=== PATIENT | female | born 2000 | race Caucasian/White ===

== ENCOUNTER 2022-03-24 10:49 | Observation (INO) | payer OTHER ==
[2022-03-22 11:35] LABS: BASOPHILS # (AUTO) 0.1 (0.0-0.1); BASOPHILS % 0.7 % (0.0-1.0); EOSINOPHILS # (AUTO) 0.2 (0.0-0.4); EOSINOPHILS % 3.1 % (0.0-6.0); HEMATOCRIT 41.3 % (34.2-44.1); HEMOGLOBIN 12.7 g/dL (12.0-16.0); LYMPHOCYTES # (AUTO) 1.8 (1.0-3.2); LYMPHOCYTES % 24.2 % (18.0-39.1); MEAN CORPUSCULAR HEMOGLOBIN 25.3 pg (28-32); MEAN CORPUSCULAR HGB CONC 30.8 g/dL (31-35); MEAN CORPUSCULAR VOLUME 82.3 fL (81-99); MONOCYTES # (AUTO) 0.6 (0.2-0.8); MONOCYTES % 7.5 % (4.4-11.3); NEUTROPHILS # (AUTO) 4.7 (2.1-6.9); NEUTROPHILS % 64.4 % (38.7-80.0); PLATELET COUNT 366 x10e3/uL (140-360); RED BLOOD COUNT 5.02 x10e6/uL (3.6-5.1); RED CELL DISTRIBUTION WIDTH 14.8 % (11.7-14.4)
[2022-03-22 11:55] LABS: ALBUMIN 3.7 g/dL (3.5-5.0); ALBUMIN/GLOBULIN RATIO 0.9 (0.8-2.0); ANION GAP 12.9 mmol/L (8-16); CALCIUM 9.1 mg/dL (8.4-10.2); CREATININE, SERUM 0.65 mg/dL (0.57-1.11); POTASSIUM 3.9 mmol/L (3.5-5.1)
[~2022-03-24] VITALS: Ht 160 cm; Wt 69.9 kg
[~2022-03-24 10:49] MED LIST: CEPHALEXIN500 MG PO; KEPPRA1000 M1 PO; KLONOPIN2 MG PO; LEXAPRO20 MG PO; VITAMIN D
[2022-03-24] MEDS ORDERED: DEXAMETHASONE SOD PHOS INJ 4 MG/ML SDV ONE (12:00)
[2022-03-24] MEDS ORDERED: POVIDONE IODINE 0.05% 0.05 % ML PO ONE (12:00)
[2022-03-24] MEDS ORDERED: ACETAMINOPHEN 1000 MG/100 ML IV ONE (12:00)
[2022-03-24] MEDS ORDERED: PROPOFOL IV EMULSION 10 MG/ML 20 ML VIAL ONE (12:00)
[2022-03-24] MEDS ORDERED: KETOROLAC TROMETHAMINE 30 MG/ML VIAL ONE (12:00)
[2022-03-24] MEDS ORDERED: ONDANSETRON HCL INJ 2MG/ML 2ML 2 MG/ML VIAL ONE (12:00)
[2022-03-24] MEDS ORDERED: SUCCINYLCHOLINE CHLORIDE 20 MG/ML 10ML VIAL ONE (12:00)
[2022-03-24] MEDS ORDERED: ROCURONIUM BROMIDE 10 MG/ML 5ML VIAL IV ONE (12:00)
[2022-03-24] MEDS ORDERED: LIDOCAINE HCL 2% LOCAL INJ 5 ML SDV VIAL INJ ONE (12:00)
[2022-03-24] MEDS ORDERED: SEVOFLURANE INHAL SOLN 250 ML PEN BTL ONE (12:00)
[2022-03-24] MEDS ORDERED: BUPIVACAINE 0.25% 30ML SDV ONE (12:19)
[2022-03-24] MEDS ORDERED: FENTANYL CITRATE/PF 100MCG/2 ML INJ ONE (15:20)
[2022-03-24] MEDS ORDERED: MIDAZOLAM HCL 2 MG/2 ML VIAL ONE (15:20)
[2022-03-24 16:40] VITALS: BP 116/73
[2022-03-24] MEDS ORDERED: ONDANSETRON HCL INJ 2MG/ML 2ML 2 MG/ML VIAL IV PRN (16:45)
[2022-03-24] MEDS: LACTATED RINGER'S 1,000 ML INJ SCH (17:25)
[2022-03-24] MEDS: Morphine 4mg INJECTION 4 MG/ML INJ IV PRN (18:31)
[2022-03-24 20:00] VITALS: BP 110/61
[2022-03-24 20:44] VITALS: BP 110/61
[2022-03-25] VITALS (8 sets, daily range): BP systolic 90–113; BP diastolic 59–83
[2022-03-25] MEDS: LACTATED RINGER'S 1,000 ML INJ SCH ×3 (03:29→23:41)
[2022-03-25] MEDS: Morphine 4mg INJECTION 4 MG/ML INJ IV PRN ×2 (03:29→10:57)
[2022-03-25] MEDS: LEVETIRACETAM 500 MG TAB PO SCH ×2 (09:00→17:23)
[2022-03-25] MEDS: ESCITALOPRAM OXALATE 10 MG TAB PO SCH (09:14)
[2022-03-25] MEDS: HYDROCODONE/APAP 5MG-325MG TAB PO PRN ×2 (15:52→20:23)
[2022-03-26] VITALS (8 sets, daily range): BP systolic 107–126; BP diastolic 59–85
[2022-03-26] MEDS: HYDROCODONE/APAP 5MG-325MG TAB PO PRN ×4 (00:43→18:19)
[2022-03-26] MEDS: ESCITALOPRAM OXALATE 10 MG TAB PO SCH (08:22)
[2022-03-26] MEDS: LEVETIRACETAM 500 MG TAB PO SCH ×2 (08:22→17:05)
[2022-03-26] MEDS: LACTATED RINGER'S 1,000 ML INJ SCH ×2 (08:45→21:04)
[2022-03-27] VITALS: BP 121/72
[2022-03-27] MEDS: HYDROCODONE/APAP 5MG-325MG TAB PO PRN ×2 (00:33→05:38)
[2022-03-27 04:00] VITALS: BP 123/81
[2022-03-27 07:59] VITALS: BP 123/68
[2022-03-27] MEDS: LEVETIRACETAM 500 MG TAB PO SCH (08:39)
[2022-03-27] MEDS: ESCITALOPRAM OXALATE 10 MG TAB PO SCH (08:39)
[2022-03-27 09:00] VITALS: BP 123/68
[2022-03-27 11:34] VITALS: BP 94/69
[2022-03-27] MEDS ORDERED: Tylenol #3 PO (12:03)
== END 2022-03-27 14:16 | disposition home or self-care (01) ==
LOC: OR 10:49 → PACU V 14:28 → MED/SURG3 16:00
PROVIDERS: ADMIT Surgery; ATTEND Surgery
DX: K31.6 Fistula of stomach and duodenum (principal); G40.909 Epilepsy, unspecified, not intractable, without status epilepticus; Z20.822 Contact with and (suspected) exposure to COVID-19; Z93.1 Gastrostomy status; F32.A Depression, unspecified; F41.1 Generalized anxiety disorder
CPT/HCPCS: 0223U; 36415; 43999; 80053; 81025; 85025; 96360 ×2; 96361 ×3; G0378 ×4; J0131; J0330; J0690 ×3; J1100; J1885; J2001; J2250; J2270 ×2; J2405; J2704; J3010; J7121 ×2

== ENCOUNTER 2022-05-21 04:00 | Emergency (ER) | payer OTHER ==
[~2022-05-21] VITALS: Ht 160 cm; Wt 69.9 kg
[~2022-05-21 04:00] MED LIST changes: +Tylenol #3 PO
[2022-05-21 04:30] LABS: BASOPHILS % 0.4 % (0.0-1.0); EOSINOPHILS # (AUTO) 0.2 (0.0-0.4); EOSINOPHILS % 2.4 % (0.0-6.0); HEMATOCRIT 42.3 % (34.2-44.1); HEMOGLOBIN 12.9 g/dL (12.0-16.0); LYMPHOCYTES # (AUTO) 2.9 (1.0-3.2); LYMPHOCYTES % 35.3 % (18.0-39.1); MEAN CORPUSCULAR HEMOGLOBIN 25.5 pg (28-32); MEAN CORPUSCULAR HGB CONC 30.5 g/dL (31-35); MEAN CORPUSCULAR VOLUME 83.6 fL (81-99); MONOCYTES # (AUTO) 0.7 (0.2-0.8); NEUTROPHILS # (AUTO) 4.3 (2.1-6.9); NEUTROPHILS % 52.7 % (38.7-80.0); PLATELET COUNT 333 x10e3/uL (140-360); RED BLOOD COUNT 5.06 x10e6/uL (3.6-5.1); RED CELL DISTRIBUTION WIDTH 15.2 % (11.7-14.4)
[2022-05-21 04:45] LABS: ALBUMIN 3.9 g/dL (3.5-5.0); ANION GAP 18.1 mmol/L (8-16); CALCIUM 9.7 mg/dL (8.4-10.2); CREATININE, SERUM 0.65 mg/dL (0.57-1.11); POTASSIUM 4.1 mmol/L (3.5-5.1)
[2022-05-21 04:55] LABS: CLARITY,URINE SL CLOUDY (CLEAR); COLOR,URINE YELLOW (YELLOW)
[2022-05-21 04:56] LABS: AMPHETAMINES SCREEN,URINE NEGATIVE (NEGATIVE); BENZODIAZEPINES SCREEN,URINE NEGATIVE (NEGATIVE); KETONES,URINE NEGATIVE (NEGATIVE); LEUKOCYTE ESTERASE ,URINE NEGATIVE (NEGATIVE); NITRITE,URINE NEGATIVE (NEGATIVE); PHENCYCLIDINE SCREEN,URINE NEGATIVE (NEGATIVE); PROTEIN,URINE DIPSTICK NEGATIVE (NEGATIVE); URINE UROBILINOGEN 0.2 mg/dL (0.2 - 1)
[2022-05-21 05:04] LABS: BACTERIA,URINE FEW /HPF; EPITHELIAL CELLS,URINE MODERATE /LPF
[2022-05-21] MEDS ORDERED: CEFDINIR300 MG PO (05:08)
== END 2022-05-21 05:41 | disposition home or self-care (01) ==
LOC: ER 04:02
DX: G40.909 Epilepsy, unspecified, not intractable, without status epilepticus (principal); Z88.2 Allergy status to sulfonamides; Z88.8 Allergy status to other drugs, medicaments and biological substances
CPT/HCPCS: 36415; 80053; 80307; 81001; 81025; 85025; 99283